=== PATIENT | female | born 1995 | race Caucasian/White ===

== ENCOUNTER → 2017-05-03 | Outpatient (CLI) | payer OTHER ==
[~2017-05-03] MED LIST: ACET325 PO; AMOCLA500 PO; Amoxicillin500 MG PO; CEPH500 PO; CYCL10 PO; Cleocin HCl150 MG PO; Cleocin HCl300 MG PO; GUAI120S1 PO; HPA LANOLIN40 GM TOP; IBUP800 PO; Monodox100 MG PO; NAPR550 PO; Naprosyn500 MG PO; Norco 5-325 Ta1 EACH PO; ONDA4 PO; Percocet 5-3251 EACH PO; RXOXYACE PO; Ultram50 MG PO; Verotin-Gr Cap1 EACH PO
== END ==
LOC: LAB SHORT 16:57
DX: Z34.00 Encounter for supervision of normal first pregnancy, unspecified trimester (principal)
CPT/HCPCS: 87081; 87653

== ENCOUNTER 2017-06-02 04:37 | Inpatient (IN) | payer OTHER ==
[~2017-06-02] VITALS: Ht 160 cm; Wt 101.3 kg
[~2017-06-02 04:37] MED LIST changes: -ACET325 PO; -AMOCLA500 PO; -Cleocin HCl300 MG PO; -HPA LANOLIN40 GM TOP; -Monodox100 MG PO; -Naprosyn500 MG PO; -Verotin-Gr Cap1 EACH PO
[2017-06-02 05:13] LABS: BASOPHILS ABSOLUTE AUTO 0.07 K/mm3 (0.00-0.23); BASOPHILS PERCENT AUTO 1 % (0-2); EOSINOPHILS ABSOLUTE AUTO 0.22 K/mm3 (0.00-0.68); EOSINOPHILS PERCENT AUTO 2 % (0-6); Hematocrit 35.5 % (33.0-51.0); Hemoglobin 12.1 g/dL (11.5-16.0); IMMATURE GRAN ABSOLUTE AUTO 0.09 K/mm3 (0.00-0.10); IMMATURE GRAN PERCENT AUTO 1 % (0-1); LYMPHOCYTES ABSOLUTE AUTO 3.57 K/mm3 (0.84-5.20); LYMPHOCYTES PERCENT AUTO 25 % (21-46); MONOCYTES ABSOLUTE AUTO 0.74 K/mm3 (0.16-1.47); MONOCYTES PERCENT AUTO 5 % (4-13); Mean Corpuscular HGB 29.7 pg (26.0-34.0); Mean Corpuscular HGB Conc 34.1 g/dL (31.5-36.5); Mean Corpuscular Volume 87 fL (80-100); Mean Platelet Volume 9.9 fL (9.1-12.4); NEUTROPHILS ABSOLUTE AUTO 9.66 K/mm3 (1.96-9.15); NEUTROPHILS PERCENT AUTO 67 % (41-73); Platelet Count 280 K/mm3 (150-400); RDW Coefficient Variation 11.9 % (11.7-14.2); Red Blood Cell Count 4.08 M/mm3 (3.80-5.20); White Blood Cell Count 14.35 K/mm3 (4.00-11.30)
[2017-06-03 06:20] LABS: Hematocrit 29.5 % (33.0-51.0); Mean Corpuscular HGB 29.8 pg (26.0-34.0); Mean Corpuscular HGB Conc 33.9 g/dL (31.5-36.5); Mean Corpuscular Volume 88 fL (80-100); Mean Platelet Volume 9.8 fL (9.1-12.4); Platelet Count 225 K/mm3 (150-400); Red Blood Cell Count 3.36 M/mm3 (3.80-5.20); White Blood Cell Count 16.25 K/mm3 (4.00-11.30)
[2017-06-03] MEDS ORDERED: IBUP800 PO (10:55)
[2017-06-03] MEDS ORDERED: ACET325 PO (10:55)
[2017-06-03] MEDS ORDERED: HPA LANOLIN40 GM TOP (10:56)
[2017-06-03] MEDS ORDERED: Verotin-Gr Cap1 EACH PO (10:56)
[2017-07-25] MEDS ORDERED: AMOCLA500 PO (23:42)
[2017-12-25] MEDS ORDERED: Cleocin HCl300 MG PO (14:07)
== END 2017-06-03 18:30 | disposition home or self-care (01) | DRG 775 ==
LOC: BC 04:37
PROVIDERS: Obstetrics & Gynecology
PROC: 10E0XZZ Delivery of Products of Conception, External Approach (ICD-10-PCS; principal; 2017-06-02)
PROC: 0KQM0ZZ Repair Perineum Muscle, Open Approach (ICD-10-PCS; 2017-06-02)
PROC: 10907ZC Drainage of Amniotic Fluid, Therapeutic from Products of Conception, Via Natural or Artificial Opening (ICD-10-PCS; 2017-06-02)
PROC: 3E033VJ Introduction of Other Hormone into Peripheral Vein, Percutaneous Approach (ICD-10-PCS; 2017-06-02)
DX: O99.334 Smoking (tobacco) complicating childbirth (principal); F17.200 Nicotine dependence, unspecified, uncomplicated; O70.1 Second degree perineal laceration during delivery; Z37.0 Single live birth; Z3A.39 39 weeks gestation of pregnancy; Z88.1 Allergy status to other antibiotic agents; Z88.2 Allergy status to sulfonamides
CPT/HCPCS: 36415; 51702; 85025; 85027; 85460; 96372; J2405; J2590; J2790; J3010; J7120

== ENCOUNTER 2017-12-27 11:53 | Emergency (ER) | payer SELFPAY ==
[~2017-12-27] VITALS: Ht 157.5 cm; Wt 95.2 kg
[~2017-12-27 11:53] MED LIST changes: +ACET325 PO; +AMOCLA500 PO; +Cleocin HCl300 MG PO; +HPA LANOLIN40 GM TOP; +Verotin-Gr Cap1 EACH PO
== END 2017-12-27 12:13 | disposition home or self-care (01) ==
LOC: ER 11:53
DX: Z48.817 Encounter for surgical aftercare following surgery on the skin and subcutaneous tissue (principal); Z88.1 Allergy status to other antibiotic agents; Z88.2 Allergy status to sulfonamides; Z88.8 Allergy status to other drugs, medicaments and biological substances; F17.200 Nicotine dependence, unspecified, uncomplicated
CPT/HCPCS: 99282

== ENCOUNTER 2018-01-11 20:19 | Emergency (ER) | payer SELFPAY ==
[~2018-01-11] VITALS: Ht 157.5 cm; Wt 95.2 kg
[2018-01-11] MEDS ORDERED: Naprosyn500 MG PO (22:25)
[2018-01-11] MEDS ORDERED: Monodox100 MG PO (22:25)
[2018-01-11] MEDS ORDERED: Ultram50 MG PO (22:25)
== END 2018-01-11 22:38 | disposition home or self-care (01) ==
LOC: ER 20:19
DX: L02.411 Cutaneous abscess of right axilla (principal); F17.200 Nicotine dependence, unspecified, uncomplicated; Z88.1 Allergy status to other antibiotic agents; Z88.2 Allergy status to sulfonamides
CPT/HCPCS: 10061; 99283-25

== ENCOUNTER 2018-01-13 19:04 | Emergency (ER) | payer SELFPAY ==
[~2018-01-13] VITALS: Ht 157.5 cm; Wt 95.2 kg
[~2018-01-13 19:04] MED LIST changes: +Monodox100 MG PO; +Naprosyn500 MG PO
== END 2018-01-13 20:02 | disposition home or self-care (01) ==
LOC: ER 19:04
DX: Z48.817 Encounter for surgical aftercare following surgery on the skin and subcutaneous tissue (principal); F17.200 Nicotine dependence, unspecified, uncomplicated; Z88.1 Allergy status to other antibiotic agents; Z88.2 Allergy status to sulfonamides
CPT/HCPCS: 99282

== ENCOUNTER 2018-04-20 11:54 | Emergency (ER) | payer SELFPAY | END 2018-04-20 12:46 | disposition left against medical advice (07) | LOC: ER 11:54 | DX: Z53.21 Procedure and treatment not carried out due to patient leaving prior to being seen by health care provider (principal) ==

== ENCOUNTER → 2020-07-21 | Outpatient (CLI) | payer OTHER ==
[~2020-07-21] MED LIST changes: +OMEP20ER PO; +PRENATAL TABLE1 EAC2 PO
[2020-07-22 11:13] LABS: Candida species (DNA Probe) Positive (NEGATIVE); G. vaginalis (DNA Probe) Positive (NEGATIVE); T. vaginalis (DNA Probe) Negative (NEGATIVE)
== END | disposition home or self-care (01) ==
LOC: LAB 16:12 → LAB SHORT 16:12
PROVIDERS: Obstetrics & Gynecology
DX: N89.8 Other specified noninflammatory disorders of vagina (principal)
CPT/HCPCS: 87480; 87510; 87660

== ENCOUNTER → 2020-10-06 | Outpatient (CLI) | payer OTHER | END | disposition home or self-care (01) | LOC: LAB SHORT 15:06 → LAB 15:06 | DX: O09.93 Supervision of high risk pregnancy, unspecified, third trimester (principal) | CPT/HCPCS: 87081; 87150 ==

== ENCOUNTER 2020-10-28 23:42 | Inpatient (IN) | payer OTHER ==
[~2020-10-28] VITALS: Ht 157.5 cm; Wt 105.0 kg
[~2020-10-28 23:42] MED LIST changes: -OMEP20ER PO; -PRENATAL TABLE1 EAC2 PO
[2020-10-29] MEDS ORDERED: PRENATAL TABLE1 EAC2 PO (02:02)
[2020-10-29] MEDS ORDERED: OMEP20ER PO (02:02)
[2020-10-29 02:26] LABS: BASOPHILS ABSOLUTE AUTO 0.05 K/mm3 (0.00-0.23); BASOPHILS PERCENT AUTO 0 % (0-2); EOSINOPHILS ABSOLUTE AUTO 0.09 K/mm3 (0.00-0.68); EOSINOPHILS PERCENT AUTO 1 % (0-6); Hematocrit 34.8 % (33.0-51.0); Hemoglobin 12.2 g/dL (11.5-16.0); IMMATURE GRAN ABSOLUTE AUTO 0.11 K/mm3 (0.00-0.10); IMMATURE GRAN PERCENT AUTO 1 % (0-1); LYMPHOCYTES ABSOLUTE AUTO 3.32 K/mm3 (0.84-5.20); LYMPHOCYTES PERCENT AUTO 18 % (21-46); MONOCYTES ABSOLUTE AUTO 0.86 K/mm3 (0.16-1.47); MONOCYTES PERCENT AUTO 5 % (4-13); Mean Corpuscular HGB 30.6 pg (26.0-34.0); Mean Corpuscular HGB Conc 35.1 g/dL (31.5-36.5); Mean Corpuscular Volume 87 fL (80-100); Mean Platelet Volume 9.5 fL (9.1-12.4); NEUTROPHILS PERCENT AUTO 76 % (41-73); Platelet Count 255 K/mm3 (150-400); RDW Coefficient Variation 12.4 % (11.7-14.2); RDW Standard Deviation 39.1 fL (35.1-46.3); Red Blood Cell Count 3.99 M/mm3 (3.80-5.20); White Blood Cell Count 18.83 K/mm3 (4.00-11.30)
[2020-10-29 02:46] LABS: SARS-Cov-2 (COVID-19) PCR, MMC NEGATIVE (NEGATIVE)
[2020-10-30 05:40] LABS: BASOPHILS ABSOLUTE AUTO 0.05 K/mm3 (0.00-0.23); BASOPHILS PERCENT AUTO 0 % (0-2); EOSINOPHILS ABSOLUTE AUTO 0.24 K/mm3 (0.00-0.68); EOSINOPHILS PERCENT AUTO 2 % (0-6); Hemoglobin 10.4 g/dL (11.5-16.0); IMMATURE GRAN ABSOLUTE AUTO 0.13 K/mm3 (0.00-0.10); IMMATURE GRAN PERCENT AUTO 1 % (0-1); LYMPHOCYTES ABSOLUTE AUTO 4.29 K/mm3 (0.84-5.20); LYMPHOCYTES PERCENT AUTO 32 % (21-46); MONOCYTES ABSOLUTE AUTO 0.57 K/mm3 (0.16-1.47); MONOCYTES PERCENT AUTO 4 % (4-13); Mean Corpuscular HGB 30.8 pg (26.0-34.0); Mean Corpuscular HGB Conc 33.5 g/dL (31.5-36.5); Mean Platelet Volume 9.7 fL (9.1-12.4); NEUTROPHILS ABSOLUTE AUTO 8.21 K/mm3 (1.96-9.15); NEUTROPHILS PERCENT AUTO 61 % (41-73); Platelet Count 230 K/mm3 (150-400); RDW Coefficient Variation 12.8 % (11.7-14.2); RDW Standard Deviation 42.1 fL (35.1-46.3); Red Blood Cell Count 3.38 M/mm3 (3.80-5.20); White Blood Cell Count 13.49 K/mm3 (4.00-11.30)
[2020-10-30 06:28] LABS: Mean Corpuscular Volume 92 fL (80-100)
[2020-10-30] MEDS ORDERED: IBUP800 PO (07:11)
== END 2020-10-30 09:10 | disposition home or self-care (01) | DRG 807 ==
LOC: OBS 23:42 → BC 23:42 → OBS 10-29 01:34 → BC 10-29 01:36
PROVIDERS: ADMIT Obstetrics & Gynecology
PROC: 10E0XZZ Delivery of Products of Conception, External Approach (ICD-10-PCS; principal; 2020-10-29)
PROC: 10907ZC Drainage of Amniotic Fluid, Therapeutic from Products of Conception, Via Natural or Artificial Opening (ICD-10-PCS; 2020-10-29)
PROC: 00HU33Z Insertion of Infusion Device into Spinal Canal, Percutaneous Approach (ICD-10-PCS; 2020-10-29)
PROC: 3E0R3BZ Introduction of Anesthetic Agent into Spinal Canal, Percutaneous Approach (ICD-10-PCS; 2020-10-29)
DX: O99.214 Obesity complicating childbirth (principal); Z37.0 Single live birth; O99.334 Smoking (tobacco) complicating childbirth; F17.210 Nicotine dependence, cigarettes, uncomplicated; Z3A.38 38 weeks gestation of pregnancy; O26.893 Other specified pregnancy related conditions, third trimester; Z67.41 Type O blood, Rh negative; O76 Abnormality in fetal heart rate and rhythm complicating labor and delivery; Z20.822 Contact with and (suspected) exposure to COVID-19
CPT/HCPCS: 36415; 51702; 59025; 85025; 85460; 86850; 86900; 86901; A9270; J1885; J2001; J2405; J2590; J2791; J3010; J7120; U0004

== ENCOUNTER → 2021-09-10 | Outpatient (CLI) | payer OTHER ==
[~2021-09-10] MED LIST changes: +OMEP20ER PO; +PRENATAL TABLE1 EAC2 PO
== END | disposition home or self-care (01) ==
LOC: LAB SHORT 19:19 → LAB 19:19
DX: J03.90 Acute tonsillitis, unspecified (principal)
CPT/HCPCS: 87081; 87147